=== PATIENT | male | born 2005 | race Caucasian/White ===

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

== ENCOUNTER 2024-09-19 19:03 | Inpatient (IN) | payer BC ==
[2024-09-19] MEDS ORDERED: Lorazepam 2 MG/ML VIAL ONE (19:35)
[2024-09-19] MEDS ORDERED: Fentanyl CADD 100 ML IV SCH (19:45)
[2024-09-19 19:54] LABS: #Basophils 0.07 10x3/uL (0.0-0.2); %Basophils 0.8 % (0.0-1.0); %Eosinophils 1.3 % (0.0-10.0); %Lymphocytes 16.7 % (28.0-48.0); %Monocytes 5.2 % (0.0-4.0); %Neutrophils 75.5 % (31.0-61.0); Hematocrit 42.8 % (42.0-52.0); Hemoglobin 15.2 g/dL (14.0-18.0); Mean Corpuscular HGB CONC 35.5 g/dL (32.0-36.0); Mean Corpuscular Hemoglobin 30.3 pg (25.0-35.0); Mean Corpuscular Volume 85.4 fL (78.0-98.0); Mean Platelet Volume 11.5 fL (7.4-10.4); Platelet Count 183 10x3/uL (130-400); RBC Distribution Width 12.3 % (11.5-14.5); Red Blood Cell (RBC) Count 5.01 mill/uL (4.00-5.20)
[2024-09-19 20:00] LABS: Actual Bicarbonate (HCO3a) 18.8 mEq/L (22-28); Analyzer IN Cardio ER; Base Excess (BEa) -5.3 mEq/L (-2.0 to +3.0); CO2 Tension 32.9 mmHg (35.0-45.0); Calcium, Ionized (arterial) 1.14 mmol/L (1.12-1.30); Carboxyhemoglobin (COHb) 0.3 gm% (0.0-3.0); Hematocrit-ABG 46 % (42.0-52.0); Hemoglobin (Hb) 15.5 g/dL (11.4-15.4); O2 Tension (PaO2), arterial 144.5 mmHg (80.0-100.0); Potassium - ABG Lab 3.45 mmol/L (3.70-5.30); pH, Arterial 7.374 (7.35-7.45)
[2024-09-19 20:01] LABS: ALV-art Gradient 170.875 mmHg (0-20); Puncture Site RRAD
[2024-09-19 20:08] LABS: ALT (SGPT) 22 U/L (8-55); AST (SGOT) 26 U/L (5-34); Albumin 4.4 g/dL (3.5-5.0); Alkaline Phosphatase 64 U/L (50-130); Anion Gap 18 mmol/L (10-20); BUN (Urea Nitrogen) 7 mg/dL (8.9-20.6); Bilirubin, Total 0.8 mg/dL (0.2-1.2); Calc. Creatinine Clearance 0 mL/min (70-130); Calcium 8.5 mg/dL (7.8-10.44); Carbon Dioxide 18 mmol/L (22-29); Chloride 106 mmol/L (98-107); Estimated GFR 112; Glucose 110 mg/dL (70-105); Lipase 20 U/L (8-78); PTT 25.1 sec (22.9-36.1); Potassium 3.6 mmol/L (3.5-5.1); Protein, Total 7.4 g/dL (6.0-8.3); Prothrombin Time 13.4 sec (12.0-14.7); Sodium 138 mmol/L (136-145)
[2024-09-19 20:09] LABS: Acetaminophen Less than 10 mcg/mL (Less than 10); Alcohol 363.4 mg/dL (Less than 10); Salicylate Less than 8.0 mg/dL (Less than 8.0)
[2024-09-19 20:27] LABS: Amphetamine Not Detected (NotDetected); Barbiturates Screen Not Detected (NotDetected); Benzodiazepine Screen Not Detected (NotDetected); Cocaine Metabolite Screen Not Detected (NotDetected); Methadone Not Detected (NotDetected); Methamphetamine Not Detected (NotDetected); Opiate Screen Not Detected (NotDetected); Oxycodone Screen Not Detected (NotDetected); Phencyclidine (PCP) Not Detected (NotDetected); THC/Cannabinoid Screen Not Detected (NotDetected); Tricyclic Screen Not Detected (NotDetected)
[2024-09-19] MEDS ORDERED: hydrALAZINE 20 MG/ML VIAL SLOW IVP PRN (20:42)
[2024-09-19] MEDS ORDERED: Morphine 4 MG/ML VIAL SLOW IVP PRN (20:42)
[2024-09-19] MEDS ORDERED: Ipratropium/Albuterol 3 ML NEB NEB PRN (20:42)
[2024-09-19] MEDS ORDERED: Ventilator Sedation Protocol 1 EACH FS SCH (20:45)
[2024-09-19] MEDS ORDERED: Morphine 2 MG/ML VIAL SLOW IVP PRN (21:00)
[2024-09-19] MEDS ORDERED: Propofol BOLUS 1,000 MG/100 ML VIAL IV PRN (21:00)
[2024-09-19] MEDS: Famotidine/PF 20 mg/2ml Vial SLOW IVP SCH (21:00)
[2024-09-19] MEDS ORDERED: Fentanyl BOLUS 250 ML IVPB PRN (21:00)
[2024-09-19] MEDS: Lactated Ringer's 1,000 ML IV SCH (23:25)
[2024-09-19] MEDS: Propofol 1,000 MG/100 ML VIAL IV PRN (23:30)
[2024-09-19] MEDS: Lorazepam 2 MG/ML VIAL SLOW IVP PRN (23:30)
[2024-09-20 01:09] VITALS: BMI 28.3
[2024-09-20] MEDS: Famotidine/PF 20 mg/2ml Vial SLOW IVP SCH (02:37)
[2024-09-20 07:09] VITALS: BP 105/39
[2024-09-20] MEDS: DC Sedation Protocol FS ONE (09:30)
[2024-09-20 09:48] LABS: #Basophils 0.03 10x3/uL (0.0-0.2); %Basophils 0.3 % (0.0-1.0); %Eosinophils 0.4 % (0.0-10.0); %Lymphocytes 13.9 % (28.0-48.0); %Monocytes 8.1 % (0.0-4.0); %Neutrophils 76.8 % (31.0-61.0); Hematocrit 39.8 % (42.0-52.0); Hemoglobin 13.8 g/dL (14.0-18.0); Mean Corpuscular HGB CONC 34.7 g/dL (32.0-36.0); Mean Corpuscular Volume 86.5 fL (78.0-98.0); Mean Platelet Volume 11.4 fL (7.4-10.4); Platelet Count 160 10x3/uL (130-400); RBC Distribution Width 12.6 % (11.5-14.5)
[2024-09-20] MEDS: FLU (Fluarix Triv) TS24-25(6MOS UP)/PF 45 MCG/0.5 ML Syringe IM ONE (09:55)
[2024-09-20] MEDS: TETANUS, DIPHTHERIA TOX,ADULT (TDVAX) 0.5 ML VIAL IM ONE (10:04)
[2024-09-20 10:07] LABS: ALT (SGPT) 19 U/L (8-55); AST (SGOT) 24 U/L (5-34); Albumin 3.9 g/dL (3.5-5.0); Alkaline Phosphatase 65 U/L (50-130); Anion Gap 16 mmol/L (10-20); BUN (Urea Nitrogen) 8 mg/dL (8.9-20.6); Bilirubin, Total 1.5 mg/dL (0.2-1.2); Calc. Creatinine Clearance 183 mL/min (70-130); Calcium 8.2 mg/dL (7.8-10.44); Carbon Dioxide 20 mmol/L (22-29); Chloride 106 mmol/L (98-107); Estimated GFR 128; Globulin 2.6 g/dL (2.4-3.5); Glucose 112 mg/dL (70-105); Potassium 3.5 mmol/L (3.5-5.1); Protein, Total 6.5 g/dL (6.0-8.3); Sodium 138 mmol/L (136-145)
[2024-09-20] MEDS: Ondansetron ODT 4 MG TAB PO PRN (10:34)
[2024-09-20 12:03] VITALS: TEMP 99.1
[2024-09-20] MEDS ORDERED: Acetaminophen 500 MG TAB PO PRN (12:19)
[2024-09-20] MEDS ORDERED: Ibuprofen 200 MG TAB PO PRN (12:22)
== END 2024-09-20 13:05 | disposition home or self-care (01) | DRG 208 ==
LOC: ERS 19:03 → CCU 23:16
PROVIDERS: ADMIT Specialist; ATTEND Specialist
PROC: 0T9B70Z Drainage of Bladder with Drainage Device, Via Natural or Artificial Opening (ICD-10-PCS; principal; 2024-09-19)
PROC: 5A1935Z Respiratory Ventilation, Less than 24 Consecutive Hours (ICD-10-PCS; 2024-09-19)
PROC: 0BH17EZ Insertion of Endotracheal Airway into Trachea, Via Natural or Artificial Opening (ICD-10-PCS; 2024-09-19)
PROC: 4A033R1 Measurement of Arterial Saturation, Peripheral, Percutaneous Approach (ICD-10-PCS; 2024-09-19)
DX: J96.01 Acute respiratory failure with hypoxia (principal); G93.41 Metabolic encephalopathy; J69.0 Pneumonitis due to inhalation of food and vomit; S06.0XAA Concussion with loss of consciousness status unknown, initial encounter; E87.20 Acidosis, unspecified; F10.129 Alcohol abuse with intoxication, unspecified; S30.811A Abrasion of abdominal wall, initial encounter; S80.211A Abrasion, right knee, initial encounter; W10.9XXA Fall (on) (from) unspecified stairs and steps, initial encounter
CPT/HCPCS: 31500; 36415; 51702; 70450; 71045; 71260; 72125; 74177; 80053; 80306; 80307; 82805; 83690; 85025; 85610; 85730; 86850; 86900; 86901; 90656; 90714; 93005; 94002; 94003; 94760; 96365; 96366; 99292; G0390; J2060; J2704; J3010; J3490; J7120; Q0162